=== PATIENT | male | born 1950 | race Caucasian/White ===

== ENCOUNTER → 2019-12-29 14:38 | Outpatient (CLI) | payer MEDICARE, BC, SELFPAY ==
[2020-01-01 09:21] LABS: PSA, Free 1.86 ng/mL; Prostate Specific Ag 6.4 ng/mL (0.0-4.0)
== END ==
PROVIDERS: Visit Provider Urology
DX: R97.20 Elevated prostate specific antigen [PSA] (principal)
CPT/HCPCS: 36415; 84153; 84154

== ENCOUNTER → 2020-06-28 14:42 | Outpatient (CLI) | payer MEDICARE, BC, SELFPAY ==
[2020-06-30 11:29] LABS: PSA, Free 1.23 ng/mL; Prostate Specific Ag 5.9 ng/mL (0.0-4.0)
== END ==
PROVIDERS: Visit Provider Urology
DX: R97.20 Elevated prostate specific antigen [PSA] (principal)
CPT/HCPCS: 36415; 84153; 84154

== ENCOUNTER 2020-12-18 14:29 | Emergency (ER) | payer MEDICARE, BC, SELFPAY ==
[2020-12-18 14:50] VITALS: BP 138/78; PULSE 94; RESP 18; TEMP 37; O2SAT 99; BMI 28.3
--- NOTE | 2020-12-18 15:14 | XR_ITS ---
PROCEDURE: XR TIBIA FIBULA RT 2V CLINICAL INDICATION: INJURY Posttraumatic pain COMPARISON: No exams were available for comparison FINDINGS: No fracture or dislocation. No lytic or blastic change. There is normal mineralization. The joint spaces are well-preserved. No significant degenerative/arthritic changes. No erosive changes evident. Other findings:There is a screw present with within the distal aspect of the tibia at the medial malleolar region IMPRESSION: No acute findings. Dictated by: Milton Middleton MD 12/19/2020 06:16 Milton Middleton MD in [place] 12/19/2020 06:16
--- NOTE | 2020-12-18 15:24 | HMH.EDUTC ---
[facility] [place] Disposition Clinical Impression: Strain of right calf muscle Disposition: Home, Self-Care Condition on Discharge: Good Instructions: How To Perform RICE (Rest, Ice, Compress, Elevate), DI for Calf Muscle Strain, Calf Muscle Strain, How to Use Crutches, How to Apply an Sergei Wrap Additional Instructions: *weight bearing as tolerated Use crutches to keep from bearing all weight on injuried leg *RICE, Rest the extremity, Ice 15-20 minutes every 1-2 hours, Compress- wear the sergei wrap as discussed as much as possible to help reduce swelling and pain, Elevate the extremity when at rest *Sergei wrap is for support and help control swelling, use it except in the shower. Be sure that is not to tight but not to loose either *Elevate when resting *Ibuprofen every 6-8 hours as needed for pain an inflammation If need something more can take Tylenol in between doses of Ibuprofen to help if your doctor has told you that you can take them Immediately follow up with your family doctor for new or worsening of symptoms, or no noticeable improvement over the next 3-[address] Rodriguez's office will call you with appointment make sure to answer your phone Return if needed Straight to ER if any life threatening symptoms Referrals: Jaime Combs [Primary Care Provider] - As needed Surekha Rodriguez MD [Physician] - As needed (Office will call with appointment) Time of Disposition: 15:55 Medical Decision Making - Yamil Inquiry Pt receiving controlled substance: No Yamil was queried for this patient: No Vital Signs: 12/18/20 14:50 Temperature 98.6 F Temperature Source Oral Pulse Rate [Right Brachial] 94 H Respiratory Rate 18 Blood Pressure [Right Arm] 138/78 Blood Pressure Mean [Right Arm] 98 Blood Pressure Source [Right Arm] Automatic Cuff Blood Pressure Position [Right Arm] Sitting 02 Sat by Pulse Oximetry 99 Oxygen Delivery Method Room Air Orders (Tests/Meds): ORDERS Category Date Time Status Fibula/tibia XR right 2 views [XR tibia fibula RT 2V] Exams 12/18/20 15:14 Ordered Stat - Radiology Data #1 Image(s): Tib/Fib Image Reviewed: Yes I reviewed the patient's radiology image Preliminary Findings: No Fracture Seen - Physician Consults Physician Consulted: Jennifer Time: 15:51 Reason -: Orthopedic Eval/Care Comment/Response: Spoke with Dr Rodriguez about patient and she advised RICE crutches and she will see him tomorrow or the next day her office will call with appointment [facility] [place] HPI - General Stated complaint: ao 12/18/20 @ 1330 Rt leg muscle pulled Time Seen by Provider: 12/18/20 15:24 Mode of Arrival: Ambulatory Source of Information: Patient Limitations: No Limitations Description of Symptoms (Recalled from Triage Doc. 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 and he felt a pop in his right calf area just below his knee State that he feels like something broke States that ever since he has been having pain in that calf muscle and hurts when he walks - Related Data Home Medications Medication Instructions Recorded Confirmed amlodipine 10 mg tablet 10 mg PO DAILY 12/29/19 06/28/20 aspirin 81 mg tablet,delayed 81 mg PO DAILY 12/29/19 06/28/20 release atorvastatin 10 mg tablet 10 mg PO DAILY 12/29/19 06/28/20 galantamine 16 mg 24 hr 16 mg PO DAILY 12/29/19 06/28/20 capsule,extended release mirtazapine 30 mg tablet 30 mg PO DAILY 12/29/19 06/28/20 montelukast 10 mg tablet 10 mg PO DAILY 12/29/19 06/28/20 omeprazole 40 mg capsule,delayed 40 mg PO DAILY cap 12/29/19 06/28/20 release
[2020-12-18 16:02] VITALS: BP 148/87; PULSE 87; RESP 19; TEMP 36.6
== END 2020-12-18 16:02 | disposition home or self-care (01) ==
PROVIDERS: Emergency Provider Nurse Practitioner; PCP Family Medicine
DX: S86.811A Strain of other muscle(s) and tendon(s) at lower leg level, right leg, initial encounter (principal); X50.0XXA Overexertion from strenuous movement or load, initial encounter; Y92.017 Garden or yard in single-family (private) house as the place of occurrence of the external cause; E78.5 Hyperlipidemia, unspecified; I10 Essential (primary) hypertension
CPT/HCPCS: 29505; G0463; 73590; 99202

== ENCOUNTER → 2020-12-27 14:13 | Outpatient (CLI) | payer MEDICARE, BC, SELFPAY ==
[2020-12-29 08:43] LABS: Prostate Specific Ag 7.1 ng/mL (0.0-4.0)
== END ==
PROVIDERS: Visit Provider Urology
DX: R97.20 Elevated prostate specific antigen [PSA] (principal)
CPT/HCPCS: 36415; 84153; 84154

== ENCOUNTER 2021-02-01 09:00 | Outpatient (RCR) | payer MEDICARE, BC, SELFPAY ==
--- NOTE | 2020-12-28 10:20 | HMH.PTOPEV ---
PT Outpatient Evaluation Rehab PT Outpatient Evaluation Start: 12/28/20 09:45 Freq: Status: Active Protocol: Document 12/28/20 09:45 MARCELLE (Rec: 12/28/20 10:20 MARCELLE [id number]) Electronically Signed By Deacon Messina, PT 12/28/20 09:45 Outpatient Therapy Subjective History Subjective History Pt reports injury to R calf mm while attempting to push broke down riding lawnmower ~3 weeks ago. Pt reports feeling 'two very loud audible pops', and pain in the R gastroc region. Pt reports some lingering R calf soreness and stiffness, as well as bruising , but still able to walk/stand WFL. Chief Complaint Pain,Stiff,Swelling Symptom Type Ache,Dull Symptoms Relieved By Rest/Positioning Symptoms Aggravated By Standing,Walking Prior Functional Limitations None Current Functional Limitations Housework,Standing,Squatting, Walking,Stairs Symptom Description Intermittent Level of pain today (0-10) 2 Pain scale - at its best (0-10) 0 Pain scale - at its worst (0-10) 4 Ankle/Foot Eval Gait Observation General Gait Pattern Observation Antalgic Gait Palpation Tenderness right Ankle/Foot Palpation Findings Tenderness Ankle/Foot Palpation Overall Comment 2-3/4 MEDIAL AND LATERAL GASTROC MM BELLY ROM Ankle/Foot Dorsiflexion w/Knee Extended 0-5 Active Range Motion (degrees) Ankle/Foot Plantar Flexion Active Range 0-35 of Motion (degrees) Ankle/Foot Eversion Active Range of 0-12 Motion (degrees) Ankle/Foot Inversion Active Range of 0-32 Motion (degrees) MMT Ankle Dorsiflexion Strength Grade 4 Good Ankle Plantarflexion Strength Grade 4- Good- Foot Eversion Strength Grade 5 Normal Foot Inversion Strength Grade 5 Normal Outpatient Therapy Assessment Impairments Problems/Impairmments Palpation Tenderness,Impaired Range of Motion,Impaired Strength,Impaired Gait Pattern ,Impaired Walking,Impaired Standing,Impaired Household Care,Impaired Stair Climbing, Impaired Squatting,Subjective C/O Pain,Impaired Self Care/ Self Management Prognosis Rehab Potential Good Clinical Impression Consistent with Diagnosis Yes Short Term Goals Number of Weeks
--- NOTE | 2021-02-01 09:41 | HMH.RHREAS ---
Rehab Reassessment Rehab OP Re-assessment Start: 02/01/21 09:38 Freq: Status: Active Protocol: Document 02/01/21 09:38 RAFAELRADHA (Rec: 02/01/21 09:41 MARCELLE [id number]) Electronically Signed By Deacon Messina, PT 02/01/21 09:38 Rehab Re-assessment Subjective Subjective PT REPORTS MARKED IMPROVEMENT IN R CALF MM PAIN @0-1/10 ON VAS W/ACTIVITY, AND FEELS 85% OVERALL FUNCTIONALLY SINCE I EVAL RELATED TO R CALF MM. Objective Objective Notes MMT: R GASTROC 4+-5/5, R SOLEUS 5/5 TTP: R MEDIAL GASTROS MM BELLY 0-4 GAIT: WFL ON LEVEL TERRAIN, AND REPORTS ABLE TO PUSH-MOW YARD W/O ISSUE PROM/FLEXIBILITY: R GASTROC WFL Assessment Progress Assessment Progressing as Expected Assessment Notes IMPROVED ROM, STRENGTH, AND TTP, AND GAIT Patient goals met STG'S ALL LTG'S ALL EXECUTED Plan Plan PT TO D/C TO HOME W/CONT. OF HEP Time and Billing Re-Eval Time 15 Re-Eval Billing Units 0 PHYSICIAN CERTIFICATION: I certify the specified therapy services for Brett Cho are required, authorized, and reviewed every 30 days.
== END 2021-02-01 09:05 | disposition home or self-care (01) ==
LOC: PT 09:00
PROVIDERS: PCP Family Medicine; Visit Provider Orthopaedic Surgery
DX: S86.921A Laceration of unspecified muscle(s) and tendon(s) at lower leg level, right leg, initial encounter (principal)
CPT/HCPCS: 97035; 97110; 97112; 97140; 97163; 97164; 97760

== ENCOUNTER 2021-03-18 14:34 | Emergency (ER) | payer MEDICARE, BC, SELFPAY ==
[2021-03-18 14:35] VITALS: BP 146/91; PULSE 81; RESP 16; TEMP 37.1; O2SAT 98; BMI 27.3
--- NOTE | 2021-03-18 14:50 | PC.NURSE ---
MD IN ROOM WITH PATIENT APPLYING LIDOCAINE TO FACE LACERATION
--- NOTE | 2021-03-18 14:54 | XR_ITS ---
PROCEDURE INFORMATION: Exam: XR Left Shoulder Exam date and time: 03/18/2021 2:54 PM Age: 70 years old Clinical indication: Pain; Upper arm; Left TECHNIQUE: Imaging protocol: XR Left shoulder. Views: 2 or more views. COMPARISON: No relevant prior studies available. FINDINGS: Bones/joints: Comminuted fracture of the proximal humerus at the metaphysis is seen which extends into the greater tuberosity. Small hemarthrosis. No associated dislocation. Soft tissues: Normal. IMPRESSION: Comminuted fracture of the proximal humerus at the metaphysis is seen which extends into the greater tuberosity. Small hemarthrosis. No associated dislocation.
--- NOTE | 2021-03-18 15:00 | PC.NURSE ---
PATIENT TO XRAY
--- NOTE | 2021-03-18 15:01 | HMH.EDGENADL ---
ED Disposition Clinical Impression: Laceration of face Qualifiers: Encounter type: initial encounter Qualified Code(s): S01.81XA - Laceration without foreign body of other part of head, initial encounter Humeral head fracture Qualifiers: Encounter type: initial encounter Fracture type: closed Laterality: left Qualified Code(s): S42.292A - Other displaced fracture of upper end of left humerus, initial encounter for closed fracture Disposition: Home, Self-Care Condition on Discharge: Good Instructions: DI for Acute Pain -- Adult Prescriptions: Hydrocodone/Acetaminophen [Hydrocodone-Acetamin 5-325 mg] 1 each PO Q6HP PRN #12 tab PRN Reason: pain Prescription Printed Cyclobenzaprine HCl [Cyclobenzaprine 5mg Tab] 5 mg PO Q8HP PRN #30 tab PRN Reason: pain/spasm Prescription Printed Ketorolac Tromethamine [Toradol 10mg tablet] 10 mg PO Q6H 5 Days #20 tab Prescription Printed Referrals: Jaime Combs [Primary Care Provider] - - Critical Care Critical Care Time: No Attestation: On 03/18/21, the high probability of a clinically significant, sudden or life threatening deterioration of the following system(s) required my full and direct attention, intervention and personal management. The time I documented below is in addition to time spent performing reported procedures but includes the following listed in this critical care notation. Medical Decision Making - Medical Records Medical records reviewed: Yes: I reviewed the patient's medical records. - Yamil Inquiry Pt receiving controlled substance: Yes Yamil was queried for this patient: Yes Reference #:: [id number] Risks and benefits of using a controlled substance: were discussed with pt by me Vital Signs: 03/18/21 14:35 Temperature 98.8 F Temperature Source Oral Pulse Rate [Radial] 81 Respiratory Rate 16 Blood Pressure [Right Radial Artery] 146/91 H Blood Pressure Mean [Right Radial Artery] 109 Blood Pressure Position [Right Radial Artery] Sitting 02 Sat by Pulse Oximetry 98 Oxygen Delivery Method Room Air Orders (Tests/Meds): ED MEDICATIONS Discontinued Medications Generic Name Dose Route Start Last Admin Trade Name Freq PRN Reason Stop Dose Admin Ketorolac Tromethamine 60 mg 03/18/21 14:56 03/18/21 14:59 Ketorolac 60mg/2ml Vial IM 03/18/21 14:57 60 mg ONCE ONE Administration Orphenadrine Citrate 60 mg 03/18/21 14:56 03/18/21 14:59 Orphenadrine Citrate 60mg/2ml Vial IM 03/18/21 14:57 60 mg ONCE ONE Administration Tetanus/Reduced Diphtheria/Acell Pertussis 0.5 ml 03/18/21 14:55 03/18/21 14:59 Tet/Diphth/Pert-Adult 0.5ml Syringe IM 03/18/21 14:56 0.5 ml .ONCE ONE Administration ORDERS Category Date Time Status XR shoulder LT min 2V Stat Exams 03/18/21 14:54 Taken - Radiology Data #1 Image(s): Shoulder Image Reviewed: Yes I reviewed the patient's radiology results transverse fx a L.humeral head Medical Decision Narrative: cominuted proximal humerous fx. Case discussed with Dr. Sanchez who reccomends immobilizing the shoulder with f/u in office of discussion of surgical fixation. Pt will be given prn analgesia in the meantime. General Adult HPI - General Chief complaint: PAIN Stated complaint: ao lt shoulder pain, laceration lt side of face Time Seen by Provider: 03/18/21 14:45 Mode of Arrival: Ambulatory Source of Information: Patient Limitations: No Limitations Description of Symptoms (Recalled from ER Triage Doc. by RN): TO ED PER [employer] WITH C/O LT SHOULDER PAIN STATES HE WAS CLEANING [place] OUTSIDE AND PULLED SOMETHING LT SHOULDER. ALSO C/O LAC TO LT SIDE FACE FROM [place] WITH A THORN . - History of Present Illness HPI narrative: Male presents with complaints of left shoulder pain after injuring the shoulder while lifting degrees while cleaning his property. Patient reports while lifting a piece of debris he inadvertently also lacerated his face on the left side
--- NOTE | 2021-03-18 15:07 | PC.NURSE ---
PATIENT RETURNED FROM XRAY
[2021-03-18 16:03] VITALS: BP 145/88; PULSE 78; RESP 16; TEMP 36.6; O2SAT 96
== END 2021-03-18 16:04 | disposition home or self-care (01) ==
PROVIDERS: Emergency Provider Emergency Medicine; PCP Family Medicine
DX: S01.81XA Laceration without foreign body of other part of head, initial encounter (principal); S42.292A Other displaced fracture of upper end of left humerus, initial encounter for closed fracture; X50.0XXA Overexertion from strenuous movement or load, initial encounter; Y92.019 Unspecified place in single-family (private) house as the place of occurrence of the external cause; Z88.0 Allergy status to penicillin; Z79.899 Other long term (current) drug therapy
CPT/HCPCS: 12013; 73030; 90471; 90715; 96372; 99283

== ENCOUNTER 2021-06-20 09:00 | Outpatient (RCR) | payer MEDICARE, BC, SELFPAY | END 2021-06-20 09:05 | disposition home or self-care (01) | LOC: PT 09:00 | PROVIDERS: PCP Family Medicine; Visit Provider Orthopaedic Surgery Adult Reconstructive Orthopaedic Surgery | DX: S42.292A Other displaced fracture of upper end of left humerus, initial encounter for closed fracture (principal) | CPT/HCPCS: 97014; 97016; 97110; 97140; 97163; 97164; G0283 ==

== ENCOUNTER → 2021-06-29 14:00 | Outpatient (CLI) | payer MEDICARE, BC, SELFPAY ==
[2021-07-01 09:12] LABS: PSA, Free 0.97 ng/mL; Prostate Specific Ag 5.7 ng/mL (0.0-4.0)
== END ==
PROVIDERS: Visit Provider Urology
DX: R97.20 Elevated prostate specific antigen [PSA] (principal)
CPT/HCPCS: 36415; 84153; 84154

== ENCOUNTER 2021-11-21 14:00 | Emergency (ER) | payer MEDICARE, BC, SELFPAY ==
[2021-11-21] VITALS (10 sets, daily range): BP systolic 107–142; BP diastolic 56–69; PULSE 61–86; RESP 12–20; TEMP 37.1; O2SAT 91–96; BMI 23.6
--- NOTE | 2021-11-21 14:23 | HMH.EDGENADL ---
ED Disposition Clinical Impression: Accidental overdose Qualifiers: Encounter type: initial encounter Qualified Code(s): T50.901A - Poisoning by unspecified drugs, medicaments and biological substances, accidental (unintentional), initial encounter Disposition: Home, Self-Care Condition on Discharge: Good Additional Instructions: Do not take Your Vitamin E medication this evening Tonight you may take your: Atorvastatin (if it is the day on) Aspirin Caltrate Alfuzosin Mirtazapine Referrals: Jaime Combs [Primary Care Provider] - - Critical Care Critical Care Time: No Attestation: On 11/21/21, the high probability of a clinically significant, sudden or life threatening deterioration of the following system(s) required my full and direct attention, intervention and personal management. The time I documented below is in addition to time spent performing reported procedures but includes the following listed in this critical care notation. Medical Decision Making - Medical Records Medical records reviewed: Yes: I reviewed the patient's medical records. - Yamil Inquiry Pt receiving controlled substance: No Vital Signs: 11/21/21 13:59 11/21/21 14:53 11/21/21 15:00 Temperature 98.7 F Temperature Source Oral Pulse Rate 61 66 Pulse Rate [Right Radial] 70 Respiratory Rate 14 18 14 Blood Pressure 127/67 126/68 Blood Pressure [Right Arm] 142/56 H Blood Pressure Mean 84 92 Blood Pressure Mean [Right Arm] 84 Blood Pressure Source [Right Arm] Automatic Cuff Blood Pressure Position [Right Arm] Sitting 02 Sat by Pulse Oximetry 96 96 92 L Oxygen Delivery Method Room Air 11/21/21 15:30 11/21/21 16:00 Temperature Temperature Source Pulse Rate 62 62 Pulse Rate [Right Radial] Respiratory Rate 18 12 Blood Pressure 107/68 L 111/62 Blood Pressure [Right Arm] Blood Pressure Mean 81 71 Blood Pressure Mean [Right Arm] Blood Pressure Source [Right Arm] Blood Pressure Position [Right Arm] 02 Sat by Pulse Oximetry 91 L 94 L Oxygen Delivery Method - Lab Data Lab results reviewed: Yes: I reviewed the patient's lab results. Lab Results 11/21/21 13:55: WBC 9.6, RBC 4.97, Hgb 15.0, Hct 45.0, MCV 90.5, MCH 30.2, MCHC 33.3, RDW 13.5, Plt Count 286, MPV 8.9, Neut % (Auto) 77.7, Lymph % (Auto) 14.7, [place] % (Auto) 5.9, Eos % (Auto) 0.8, Baso % (Auto) 0.8, Neut # (Auto) 7.5, Lymph # (Auto) 1.4, [place] # (Auto) 0.6, Eos # (Auto) 0.1, Baso # (Auto) 0.1 11/21/21 13:55: Sodium 140, Potassium 3.5, Chloride 108 H, Carbon Dioxide 23, Anion Gap 12.5, BUN 15, Creatinine 0.70, Estimated Creat Clear 73, Estimated GFR 111, Est GFR ( Amer) 135, Glucose 157 H, Calcium 8.2 L, Total Bilirubin 0.7, AST 39, ALT 30, Alkaline Phosphatase 83, Troponin I < 0.01, Total Protein 6.8, Albumin 4.2, Globulin 2.6, Albumin/Globulin Ratio 1.6 11/21/21 14:25: Lactate 1.5 Result diagrams: 11/21/21 13:55 11/21/21 13:55 Orders (Tests/Meds): ED MEDICATIONS Discontinued Medications Generic Name Dose Route Start Last Admin Trade Name Freq PRN Reason Stop Dose Admin Sodium Chloride 1,000 mls @ 999 mls/hr 11/21/21 14:26 11/21/21 14:46 Sod Chlor 0.9% 1000ml Bag IV 11/21/21 15:26 999 mls/hr .Q1H1M ONE Administration ORDERS Category Date Time Status Troponin I Q3H Lab 11/21/21 17:30 Ordered Troponin I Q3H Lab 11/21/21 20:30 Ordered Medical Decision Narrative: Patient is a 71-year-old male presenting to emergency department chief complaint of accidental overdose. CBC, CMP, EKG, troponin patient fluids. Concerned about the Norvasc overdose at 5 times a day usually prescribed right. Also discussed patient with the poison control letter placed the patient on the monitor. Patient is currently asymptomatic, however however per poison control, the overdose of patient's galantamine is consistent with patient's symptoms. EKG showed normal sinus rhythm, patient did not have any QRS pr
--- NOTE | 2021-11-21 14:30 | ECG_ITS ---
APPROVED REPORT Exam: Resting ECG HR:61 bpm ECG Measurements Heart Rate 61 AXES NC 166 P 13 QRSd 142 QRS -10 QT 469 T 15 QTc 473 Conclusion SINUS RHYTHM WITH SINUS ARRHYTHMIA RIGHT BUNDLE BRANCH BLOCK [120+ ms QRS DURATION, UPRIGHT V1, 40+ ms S IN I/aVL/V4/V5/V6] MODERATE VOLTAGE CRITERIA FOR LVH, CONSIDER NORMAL VARIANT [MEETS CRITERIA IN ONE OF: R(aVL), S(V1), R(V5), R(V5/V6)+S(V1)] ABNORMAL ECG UNCONFIRMED REPORT Electronically signed by : Tyrese Polanco MD 11/22/2021 18:13:42
[2021-11-21 14:33] LABS: Basophils # 0.1 K/mm3 (0-0.2); Basophils % 0.8 % (0.1-2.0); Eosinophils # 0.1 K/mm3 (0.0-0.4); Eosinophils % 0.8 % (0.1-12.0); Lymphocytes # 1.4 K/mm3 (0.7-4.5); Lymphocytes % 14.7 % (10-50); Mean Corpuscular HGB Conc 33.3 g/dL (31.8-35.4); Mean Corpuscular Hemoglobin 30.2 pg (27.0-31.2); Mean Corpuscular Volume 90.5 fl (80-94); Mean Platelet Volume 8.9 fl (7.4-10.4); Monocytes # 0.6 K/mm3 (0.1-1.0); Monocytes % 5.9 % (1.7-9.3); Neutrophils # 7.5 K/mm3 (1.8-7.8); Neutrophils % 77.7 % (37.0-80.0); Platelet Count 286 K/mm3 (142-424); Red Blood Count 4.97 M/mm3 (4.60-6.20); Red Cell Distribution Width 13.5 % (11.5-17.5); White Blood Count 9.6 K/mm3 (4.8-10.8)
[2021-11-21 14:35] LABS: Chloride 108 mmol/L (98-107); Sodium 140 mmol/L (136-145)
[2021-11-21 14:36] LABS: Potassium 3.5 mmoL/L (3.5-5.1)
[2021-11-21 14:38] LABS: Alanine Aminotransferase 30 U/L (12-78); Albumin Level 4.2 g/dl (3.5-5.0); Albumin/Globulin Ratio 1.6 (1.1-1.8); Alkaline Phosphatase 83 U/L (38-126); Anion Gap 12.5 mEq/L (5-15); Aspartate Amino Transferase 39 U/L (17-59); Bilirubin,Total 0.7 mg/dl (0.2-1.3); Blood Urea Nitrogen 15 mg/dl (9-20); Carbon Dioxide 23 mmol/L (22.0-30.0); Creatinine Clearance Estimated 73 mL/min (50-200); Estimated Glomerular Filt Rate 111 ml/min (>60); GFR (African American) 135 ML/MIN (>60); Globulin 2.6 g/dL (1.3-3.2); Total Protein,Serum 6.8 g/dl (6.3-8.2)
[2021-11-21 14:39] LABS: Calcium 8.2 mg/dl (8.4-10.2); Glucose 157 mg/dl (74-100)
--- NOTE | 2021-11-21 15:00 | PC.NURSE ---
Called poison control and spoke with Chiqui. She advised that r/t to the ingestion of Norvasc, pt should be monitored for 6 hours post initial ingestion. Chiqui explained that some risk are reflex tachycardia and hypotension. Advised us to continue to monitor. Chiqui advised that r/t to the ingestion of Galantamine, pt should be monitored for 7-12 hours post initial ingestion. She explained that some risks are cardiac arrhythmias, bradycardia, sweating, vomiting. Advised us to continue to monitor. States that they will call back in a few hours to reassess. notified of conversation with poison control.
[2021-11-21 15:03] LABS: Troponin I < 0.01 ng/ml (0.00-0.034)
[2021-11-21 15:17] LABS: Lactic Acid 1.5 mmol/L (0.7-2.1)
--- NOTE | 2021-11-21 17:40 | ECG_ITS ---
APPROVED REPORT Exam: Resting ECG HR:67 bpm ECG Measurements Heart Rate 67 AXES VT 161 P 9 QRSd 133 QRS -9 QT 413 T -1 QTc 429 Conclusion SINUS RHYTHM RIGHT BUNDLE BRANCH BLOCK [120+ ms QRS DURATION, UPRIGHT V1, 40+ ms S IN I/aVL/V4/V5/V6] MODERATE VOLTAGE CRITERIA FOR LVH, CONSIDER NORMAL VARIANT [MEETS CRITERIA IN ONE OF: R(aVL), S(V1), R(V5), R(V5/V6)+S(V1)] ABNORMAL ECG UNCONFIRMED REPORT Electronically signed by : Tyrese Polanco MD 11/22/2021 18:12:48
== END 2021-11-21 18:10 | disposition home or self-care (01) ==
PROVIDERS: Emergency Provider Emergency Medicine; PCP Family Medicine
DX: T46.1X1A Poisoning by calcium-channel blockers, accidental (unintentional), initial encounter (principal); R11.10 Vomiting, unspecified; Y92.019 Unspecified place in single-family (private) house as the place of occurrence of the external cause; I10 Essential (primary) hypertension; E78.5 Hyperlipidemia, unspecified; F03.90 Unspecified dementia, unspecified severity, without behavioral disturbance, psychotic disturbance, mood disturbance, and anxiety
CPT/HCPCS: 80053; 83605; 84484; 85025; 93005; 96360; 99283

== ENCOUNTER → 2021-12-28 13:44 | Outpatient (CLI) | payer MEDICARE, BC, SELFPAY ==
[2021-12-30 08:22] LABS: PSA, Free 2.17 ng/mL; Prostate Specific Ag 7.9 ng/mL (0.0-4.0)
== END ==
PROVIDERS: Visit Provider Urology
DX: R97.20 Elevated prostate specific antigen [PSA] (principal)
CPT/HCPCS: 36415; 84153; 84154

== ENCOUNTER 2022-01-31 14:40 | Emergency (ER) | payer MEDICARE, BC, SELFPAY ==
[2022-01-31 16:13] VITALS: BP 163/78; PULSE 82; RESP 17; TEMP 36.6; O2SAT 98; BMI 27.3
--- NOTE | 2022-01-31 16:17 | HMH.EDUTC ---
[facility] [place] Disposition Clinical Impression: Tick bite Qualifiers: Encounter type: initial encounter Site of tick bite: upper arm Laterality: left Qualified Code(s): S40.862A - Insect bite (nonvenomous) of left upper arm, initial encounter; W57.XXXA - Bitten or stung by nonvenomous insect and other nonvenomous arthropods, initial encounter Disposition: Home, Self-Care Condition on Discharge: Good Instructions: How to Remove a Tick, Protect Yourself from Tickborne Illnesses Additional Instructions: Watch area for worsening of redness and swelling follow up with your Family Doctor immediately if seen Return if needed Clean area well If you noticed red bullseye like rash follow up with your Family Doctor immediately Straight to ER if any life threatening symptoms Referrals: Provider,Referral, MD [Primary Care Provider] - As needed Time of Disposition: 16:25 Medical Decision Making - Yamil Inquiry Pt receiving controlled substance: No Yamil was queried for this patient: No Vital Signs: 01/31/22 16:13 Temperature 97.8 F Temperature Source Oral Pulse Rate [Left Radial] 82 Respiratory Rate 17 Blood Pressure [Right Arm] 163/78 H Blood Pressure Mean [Right Arm] 106 02 Sat by Pulse Oximetry 98 Oxygen Delivery Method Room Air Medical Decision Narrative: prophalyxis Doxy given and dosed per pharmacy [facility] [place] HPI - General Stated complaint: tick bite Time Seen by Provider: 01/31/22 16:17 Mode of Arrival: Ambulatory Source of Information: Patient Limitations: No Limitations Description of Symptoms (Recalled from Triage Doc. by RN): pt to [facility] c/o tick bite to the left upper arm. pt states she noticed it this morning. pt denies fevers. pt reports tenderness at the site. HEENT Symptoms (Recalled from RN notes): No Resp Symptoms (Recalled from RN notes): No Skin Symptoms (Recalled from RN notes): Yes MS Symptoms (Recalled from RN notes): No Functional Status (Recalled from RN notes): na - History of Present Illness Provider Complaint: Patient states that he noticed a tick on the back of his left upper arm States that he is unsure how long the tick had been there but they removed and sure that he got it all but noticed he was having some redness and worried about a tick born illness so he came in - Related Data Home Medications Medication Instructions Recorded Confirmed amlodipine 10 mg tablet 10 mg PO DAILY 12/29/19 12/28/21 aspirin 81 mg tablet,delayed 81 mg PO DAILY 12/29/19 12/28/21 release galantamine 16 mg 24 hr 16 mg PO DAILY 12/29/19 12/28/21 capsule,extended release mirtazapine 30 mg tablet 30 mg PO DAILY 12/29/19 12/28/21 montelukast 10 mg tablet 10 mg PO DAILY 12/29/19 12/28/21 omeprazole 40 mg capsule,delayed 40 mg PO DAILY cap 12/29/19 12/28/21 release alfuzosin 10 mg tablet,extended mg PO 12/23/20 12/28/21 release 24 hr atorvastatin 20 mg tablet 20 mg PO DAILY tab 12/23/20 12/28/21 calcium carb 300 mg-D3 800 1 tab PO DAILY 12/23/20 12/28/21 unit-mag ox 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 0.5 mg-joellen-Zn tablet clobetasol 0.05 % scalp solution ml TOPICAL 12/23/20 12/28/21 diazepam 5 mg/mL oral concentrate 5 mg PO HS PRN 12/23/20 12/28/21 mometasone 50 mcg/actuation nasal g INTRANASAL 12/23/20 12/28/21 spray multivit,Ca,min-iron 8 mg-folic tab PO 12/23/20 12/28/21 acid 200 mcg-lycopene 600 mcg tablet tadalafil 5 mg tablet 5 mg PO ONCE tab 12/23/20 12/28/21 triamcinolone acetonide 0.1 % 1 applic TOPICAL PRN g 12/23/20 12/28/21 topical ointment vitamin E (dl, acetate) 180 mg 400 unit PO DAILY 12/23/20 12/28/21 (400 unit) capsule wtpqwulx-dtm-lengs acid 300 1 tab PO DAILY 12/27/20 12/28/21 mcg-lycopene 600 mcg-lutein 300 mcg tablet Previous Rx's Medication Instructions Recorded Cyclobenzaprine HCl 5 mg PO Q8HP PRN #30 tab 03/18/21 [Cyclobenzaprine 5mg Tab] Hydrocodone/Acetaminophen 1 each PO Q6HP PRN #12 tab 03/18/21 [Hydrocodone-Acetamin 5-325 mg] Ketorolac Tromethamine [[place]
[2022-01-31 16:26] VITALS: BP 163/78; PULSE 82; RESP 17; TEMP 36.6; O2SAT 98
== END 2022-01-31 16:29 | disposition home or self-care (01) ==
PROVIDERS: Emergency Provider Nurse Practitioner
DX: S40.862A Insect bite (nonvenomous) of left upper arm, initial encounter (principal); W57.XXXA Bitten or stung by nonvenomous insect and other nonvenomous arthropods, initial encounter
CPT/HCPCS: 99212; G0463

== ENCOUNTER → 2022-12-10 08:13 | Outpatient (CLI) | payer MEDICARE, BC, SELFPAY | PROVIDERS: PCP Specialist; Visit Provider Specialist | DX: G93.49 Other encephalopathy (principal); F03.93 Unspecified dementia, unspecified severity, with mood disturbance ==

== ENCOUNTER → 2022-12-17 09:07 | Outpatient (CLI) | payer MEDICARE, BC, SELFPAY ==
[2022-12-17 09:27] LABS: Basophils % 0.7 % (0.1-2.0); Eosinophils # 0.2 K/mm3 (0.0-0.4); Hematocrit 44.8 % (42.0-52.0); Hemoglobin 14.9 g/dL (14.1-18.0); Lymphocytes # 1.3 K/mm3 (0.7-4.5); Lymphocytes % 20.6 % (10-50); Mean Corpuscular HGB Conc 33.3 g/dL (31.8-35.4); Mean Corpuscular Hemoglobin 29.4 pg (27.0-31.2); Mean Corpuscular Volume 88.3 fl (80-94); Mean Platelet Volume 8.3 fl (7.4-10.4); Monocytes # 0.5 K/mm3 (0.1-1.0); Monocytes % 7.6 % (1.7-9.3); Neutrophils # 4.4 K/mm3 (1.8-7.8); Neutrophils % 68.1 % (37.0-80.0); Platelet Count 248 K/mm3 (142-424); Red Blood Count 5.07 M/mm3 (4.60-6.20); Red Cell Distribution Width 13.1 % (11.5-17.5); White Blood Count 6.4 K/mm3 (4.8-10.8)
[2022-12-17 09:30] LABS: Chloride 106 mmol/L (98-107); Potassium 3.8 mmoL/L (3.5-5.1); Sodium 142 mmol/L (136-145)
[2022-12-17 09:33] LABS: Alanine Aminotransferase 30 U/L (12-78); Albumin Level 4.4 g/dl (3.5-5.0); Albumin/Globulin Ratio 1.6 (1.1-1.8); Alkaline Phosphatase 76 U/L (38-126); Anion Gap 12.8 mEq/L (5-15); Aspartate Amino Transferase 38 U/L (17-59); Bilirubin,Total 0.4 mg/dl (0.2-1.3); Blood Urea Nitrogen 13 mg/dl (9-20); Carbon Dioxide 27 mmol/L (22.0-30.0); Estimated Glomerular Filt Rate 111 ml/min (>60); GFR (African American) 135 ML/MIN (>60); Globulin 2.8 g/dL (1.3-3.2); Total Protein,Serum 7.2 g/dl (6.3-8.2)
[2022-12-17 09:34] LABS: Glucose 106 mg/dl (74-100)
--- NOTE | 2022-12-17 09:48 | MR_ITS ---
FINAL REPORT CLINICAL HISTORY: Chronic encephalopathy, memory loss, Confusion FINDINGS: Multiplanar MR imaging of the brain was performed without and with contrast. There is mild age-appropriate atrophy. Scattered foci of increased T2 signal are seen in the cerebral white matter that have a nonspecific appearance but likely represent mild chronic ischemic/gliotic changes. There is a subcortical focus of encephalomalacia in the left parietal lobe. There is no evidence of intracranial hemorrhage or mass. No abnormal ventricular dilatation is identified. There is no evidence of shift of the midline structures. No abnormal extra-axial fluid collection is seen. No area of abnormal restricted diffusion is identified. The posterior fossa and brainstem have an unremarkable appearance. No abnormal contrast enhancement is seen. Normal major vessel vascular flow voids are seen. IMPRESSION: Mild atrophy and chronic ischemic/gliotic changes. No acute intracranial abnormality. Reviewed, Interpreted and Dictated by Elieser Hilliard III, MD Transcribed by Marcelino Pike Authenticated and [facility]
[2022-12-17 10:13] LABS: Erythrocyte Sedimentation Rate 9 mm/hr (0-20)
[2022-12-17 10:55] LABS: Vitamin B12 301 pg/mL (239-931)
[2022-12-17 10:59] LABS: Folate > 20.00 ng/mL
[2022-12-18 14:11] LABS: Rapid Plasma Reagin Ab Titer Non Reactive (NonRea<1:1)
[2022-12-24 03:08] LABS: Antinuclear Antibodies (ANA) Negative
== END ==
PROVIDERS: PCP Specialist; Visit Provider Specialist
DX: F03.93 Unspecified dementia, unspecified severity, with mood disturbance (principal); G93.49 Other encephalopathy; R45.89 Other symptoms and signs involving emotional state; T50.901A Poisoning by unspecified drugs, medicaments and biological substances, accidental (unintentional), initial encounter
CPT/HCPCS: 70553; 80053; 82607; 82746; 85025; 85651; 86038; 86225; 86235; 86593; A9576

== ENCOUNTER → 2023-01-02 10:42 | Outpatient (POV) | payer MEDICARE, BC, SELFPAY | PROVIDERS: Visit Provider Specialist/Technologist | DX: Z00.00 Encounter for general adult medical examination without abnormal findings (principal) ==

== ENCOUNTER → 2023-02-25 09:56 | Outpatient (CLI) | payer MEDICARE, BC, SELFPAY ==
[2023-02-25 10:34] LABS: Blood Urea Nitrogen 15 mg/dl (9-20); Estimated Glomerular Filt Rate 111 ml/min (>60); GFR (African American) 135 ML/MIN (>60)
== END ==
PROVIDERS: PCP Family Medicine; Visit Provider Urology
DX: C61 Malignant neoplasm of prostate (principal)
CPT/HCPCS: 36415; 82565; 84520

== ENCOUNTER → 2023-02-27 09:06 | Outpatient (CLI) | payer MEDICARE, BC, SELFPAY ==
--- NOTE | 2023-02-27 09:14 | CT_ITS ---
FINAL REPORT TECHNIQUE: Axial CT images of the abdomen and pelvis were obtained before and after the administration of IV contrast. Oral contrast was administered.This study was performed with techniques to keep radiation doses as low as reasonably achievable (ALARA). Individualized dose reduction techniques using automated exposure control or adjustment of mA and/or kV according to the patient''s size were employed. CLINICAL HISTORY: PROSTATE CANCER COMPARISON: None FINDINGS: Abdomen: Mild atelectasis is present in the lung bases. The heart is normal in size. A small hiatal hernia is present. There is mild diffuse fatty infiltration of the liver. . The spleen is unremarkable. No adrenal masses present. The pancreas has an unremarkable appearance. There is a small 1 cm cyst in the left kidney. The aorta is normal in caliber. There is no free fluid or adenopathy. No mass or abnormal fluid collection is seen. Pelvis: The appendix is not well visualized. The urinary bladder is unremarkable. There is enlargement of the prostate gland. No inflammatory process is seen. There is no evidence of mass or adenopathy. There is no evidence of bowel obstruction. IMPRESSION: No evidence of acute intra-abdominal process. Small hiatal hernia, fatty infiltration of the liver, and a small left renal 1 cm cyst. Enlarged prostate. Reviewed, Interpreted and Dictated by Elieser Hilliard III, MD Transcribed by Hanna Gonzáles Authenticated and . [facility]
== END ==
PROVIDERS: PCP Family Medicine; Visit Provider Urology
DX: C61 Malignant neoplasm of prostate (principal)
CPT/HCPCS: 74178; A9503; Q9967

== ENCOUNTER 2023-07-14 13:20 | Emergency (ER) | payer MEDICARE, BC, SELFPAY ==
[2023-07-14 13:40] VITALS: BP 142/81; PULSE 78; RESP 17; TEMP 36.6; O2SAT 98; BMI 28.7
--- NOTE | 2023-07-14 14:17 | EXP.UTC ---
Discharge Plan Disposition Patient Disposition: Home, Self-Care Condition: Good Prescriptions Prescriptions: New ondansetron 4 mg tablet,disintegrating 4 mg PO Q8H PRN (Reason: nausea and vomiting) Qty: 10 0RF No Action omeprazole 40 mg capsule,delayed release(DR/EC) 40 mg PO DAILY aspirin [Adult Aspirin Regimen] 81 mg tablet,delayed release (DR/EC) 81 mg PO DAILY montelukast [Singulair] 10 mg tablet 10 mg PO DAILY amlodipine [Norvasc] 10 mg tablet 10 mg PO DAILY mirtazapine 30 mg tablet 30 mg PO DAILY galantamine 16 mg capsule,ext rel. pellets 24 hr 16 mg PO DAILY Rx Instructions: administer with breakfast Centrum Men 8 mg iron- 200 mcg-600 mcg tablet PO vitamin E (dl, acetate) 400 unit capsule 400 unit PO DAILY atorvastatin 20 mg tablet 20 mg PO DAILY Patient Comments: TAKE 1 TABLET BY MOUTH DAILY Caltrate-D3 Plus Minerals 300 mg-800 unit -25 mg-0.5 mg tablet 1 tab PO DAILY triamcinolone acetonide 0.1 % ointment 1 applic TOPICAL PRN diazepam 5 mg/mL concentrate 5 mg PO HS PRN mometasone 50 mcg/actuation spray,non-aerosol 2 spray INTRANASAL ONCE Patient Comments: USE 2 SPRAYS IN EACH NOSTRIL DAILY DIRECTED tadalafil 5 mg tablet 5 mg PO ONCE PRN Patient Comments: TAKE 1 TABLET BY MOUTH DAILY multivitamin with folic acid [Daily-Ruth (with folic acid)] 400 mcg tablet 1 tab PO DAILY Patient Comments: TAKE 1 TABLET BY MOUTH DAILY methocarbamol 750 mg tablet 750 mg PO PRN Patient Comments: TAKE 1 TABLET BY MOUTH AT NIGHT NEEDED FOR MUSCLE SPASMS alfuzosin 10 mg tablet extended release 24 hr 10 mg PO DAILY Qty: 90 3RF Rx Instructions: administer after the same meal each day cyclobenzaprine 5 MG tablet 5 mg PO Q8HP PRN (Reason: pain/spasm) Qty: 30 0RF hydrocodone-acetaminophen 1 EACH tablet 1 each PO Q6HP PRN (Reason: pain) Qty: 12 0RF Referrals Follow up/Referrals: Jaime Combs [Primary Care Provider] - See instructions Activity Restrictions/Add. Instructions Additional Instructions/Restrictions: Drink extra fluids with and between meals. If you have difficulty drinking, try very small amounts of water or suck on ice chips. ? Avoid fruit juices, as these do not replace minerals and can actually increase diarrhea. ? Children and adults can use sports drinks to replenish electrolytes. Younger children and infants should use products formulated for children, like oral rehydration solutions. ? Eat food in small amounts and let your stomach recover. ? Get lots of rest. You may feel tired or weak. ? No greasy or fried foods for the next 24-48 hours BRAT diet Bananas Rice Apples and Swartz ? Make sure to drink plenty of liquids ? Return if needed ? Straight to ER if any life threatening symptoms ? Zofran as prescribed ? Follow up with family doctor in the next 48-72 hours if no improvement or any worsening of symptoms Clinical Impressions Clinical Impression: Nausea Instructions Patient Instructions: DI for Nausea -- Adult, Ondansetron Discharge ED Provider: Kira Carr [facility] General Stated complaint: vomiting Mode of Arrival: Ambulatory Source of Information: Patient and Spouse Limitations: No Limitations Time Seen by Provider: 07/14/23 14:17 Description of Symptoms (Recalled from Triage Doc. by RN): REPORTS THAT C/O NAUSEA SINCE THIS MORNING HEENT Symptoms (Recalled from RN notes): No Resp Symptoms (Recalled from RN notes): No Skin Symptoms (Recalled from RN notes): No MS Symptoms (Recalled from RN notes): No Functional Status (Recalled from RN notes): WNL History of Present Illness Provider Complaint: states that he has been complaining of nausea since this morning States that he has not vomited
[2023-07-14 14:26] VITALS: BP 142/81; PULSE 78; RESP 17; TEMP 36.6; O2SAT 98
== END 2023-07-14 14:29 | disposition home or self-care (01) ==
PROVIDERS: Emergency Provider Nurse Practitioner; PCP Family Medicine
DX: R11.0 Nausea (principal)
CPT/HCPCS: 99212; 99214; G0463